=== PATIENT | male | born 1995 | race African-American/Black ===

== ENCOUNTER 2017-06-30 00:27 | Emergency (ER) | payer OTHER ==
[~2017-06-30] VITALS: Ht 182.9 cm; Wt 90.0 kg
[~2017-06-30 00:27] MED LIST: CLON.1; QUET1TAB67 PO
[2017-06-30 00:30] VITALS: BP 141/81; PULSE 75; RESP 16; TEMP 98.9; O2SAT 99
[2017-06-30] MEDS ORDERED: TETANUS/DIPHTHERIA TOXOID ADULT 0.5 ML VIAL IM ONE (00:45)
[2017-06-30] MEDS ORDERED: SODIUM CHLOR 0.9% 1000 ML INJ 1,000 ML IV ONE (00:45)
--- NOTE | 2017-06-30 01:10 | PD ---
HPI . [employer] Act Chief Complaint: Alcohol/Drug Intoxication Time Seen by Provider: 00:38 Travel History International Travel<30 days: No Contact w/Intl Traveler<30days: No Traveled to known affect area: No History of Present Illness HPI This patient is brought in as a Lopez Act. He reportedly had an argument with his girlfriend. He admitted to us that he took a punch pain pills. His girlfriend had a newly filled prescription for ibuprofen 600 mg #30 which was completely empty. He has also reportedly been in alcohol. He also cut his left wrist. The patient has provided no history to us. [facility] Past Medical History Medical History: Unable to Obtain Tetanus Vaccination: Unknown Past Surgical History Surgical History: Unable to Obtain Social History Alcohol Use: Yes (TONIGHT) Tobacco Use: No Substance Use: No Allergies-Medications (Allergen,Severity, Reaction): Coded Allergies: penicillin G (Unverified Allergy, Intermediate, SWELLING ALL OVER, 06/30/17 ) Reported Meds & Prescriptions Reported Meds & Active Scripts Active Review of Systems ROS Limitations: Unresponsive Except as stated in HPI: all other systems reviewed are Neg Physical Exam Narrative GENERAL: Patient is lying on the stretcher with his eyes closed. He actively resists my opening his mouth and eyes. SKIN: warm/dry. He has some superficial lacerations on the left wrist. HEAD: Normocephalic. Atraumatic. EYES: Pupils equal and round. No scleral icterus. No injection or drainage. ENT: No nasal bleeding or discharge. Mucous membranes pink and moist. Good gag reflex. NECK: Trachea midline. Supple. CARDIOVASCULAR: Regular rate and rhythm. Heart sounds normal. RESPIRATORY: No accessory muscle use. Clear to auscultation. Breath sounds equal bilaterally. GASTROINTESTINAL: Abdomen soft. Nontender. Bowel sounds present. Nondistended. MUSCULOSKELETAL: No obvious deformities. NEUROLOGICAL: Asleep. No obvious focal deficits. PSYCHIATRIC: Unable to evaluate. Data Data Last Documented VS Vital Signs Date Time Temp Pulse Resp B/P (MAP) Pulse Ox O2 Delivery O2 Flow Rate FiO2 06/30/17 00:30 98.9 75 16 141/81 (101) 99 Orders Orders Complete Blood Count With Diff (06/30/17 00:38) Basic Metabolic Panel (Bmp) (06/30/17 00:38) Psych Screen (06/30/17 00:38) Drug Screen, Random Urine (06/30/17 00:38) Alcohol (Ethanol) (06/30/17 00:38) Sodium Chlor 0.9% 1000 Ml Inj (Ns 1000 M (06/30/17 00:45) Tetanus/Diphtheria Tox Adult (Tetanus/Di (06/30/17 00:45) Salicylates (Aspirin) (06/30/17 00:42) Tylenol (Acetaminophen) (06/30/17 00:42) Labs Laboratory Tests Test 06/30/17 01:15 06/30/17 01:23 White Blood Count 5.9 TH/MM3 Red Blood Count 4.98 MIL/MM3 Hemoglobin 14.7 GM/DL Hematocrit 42.0 % Mean Corpuscular Volume 84.5 FL Mean Corpuscular Hemoglobin 29.5 PG Mean Corpuscular Hemoglobin Concent 34.9 % Red Cell Distribution Width 13.7 % Platelet Count 209 TH/MM3 Mean Platelet Volume 8.9 FL Neutrophils (%) (Auto) 69.3 % Lymphocytes (%) (Auto) 22.0 % Monocytes (%) (Auto) 8.0 % Eosinophils (%) (Auto) 0.3 % Basophils (%) (Auto) 0.4 % Neutrophils # (Auto) 4.1 TH/MM3 Lymphocytes # (Auto) 1.3 TH/MM3 Monocytes # (Auto) 0.5 TH/MM3 Eosinophils # (Auto) 0.0 TH/MM3 Basophils # (Auto) 0.0 TH/MM3 CBC Comment DIFF FINAL Differential Comment Blood Urea Nitrogen 15 MG/DL Creatinine 1.10 MG/DL Random Glucose 72 MG/DL Calcium Level 9.1 MG/DL Sodium Level 140 MEQ/L Potassium Level 3.7 MEQ/L Chloride Level 107 MEQ/L Carbon Dioxide Level 25.0 MEQ/L Anion Gap 8 MEQ/L Estimat Glomerular Filtration Rate 101 ML/MIN Salicylates Level LESS THAN 1.7 MG/DL Acetaminophen Level LESS THAN 2.0 MCG/ML Ethyl Alcohol Level LESS THAN 3 MG/DL Urine Opiates Screen NEG Urine Barbiturates Screen NEG Urine Amphetamines Screen NEG Urine Benzodiazepines Screen NEG Urine Cocaine Screen NEG Urine Cannabinoids Screen POS MDM Medical Decision Making Medical Screen Exam Complete: Yes Emergency Medical Condition: Yes Differential Diagnosis Differential diagnosis of altered mental status includes but is not limited to infection, electrolyte abnormality, neurological event, intoxication Narrative Course This patient presents as a Lopez Act after reportedly ingesting alcohol, pain pills and cutting his wrist. Medical clearance exam was in process. He will need to wake up before he can call psych screening. The patient awakened very shortly after getting here. I believe that he was feigning unconsciousness. CBC & BMP Diagram 06/30/17 01:15 Calcium Level 9.1 Tox screen is positive for marijuana. This patient is medically clear for psychiatric evaluation. Diagnosis Primary Impression: Medical clearance for psychiatric admission Condition: Stable Maryjo Salvador MD Jun 30, 2017 01:10
[2017-06-30 01:40] LABS: AUTOMATED NEUTROPHIL # 4.1 TH/MM3 (1.8-7.7); BASOPHIL % 0.4 % (0.0-2.0); EOSINOPHIL % 0.3 % (0.0-4.0); HEMO FLAGS DIFF FINAL; LYMPHOCYTE # 1.3 TH/MM3 (1.0-4.8); MEAN CELL VOLUME 84.5 FL (80.0-100.0); MEAN CORPUSCULAR HEMOGLOBIN 29.5 PG (27.0-34.0); MEAN CORPUSCULAR HGB CONC 34.9 % (32.0-36.0); NEUT % 69.3 % (16.0-70.0); PLATELET COUNT 209 TH/MM3 (150-450); RED BLOOD COUNT 4.98 MIL/MM3 (4.50-5.90); RED CELL DISTRIBUTION WIDTH 13.7 % (11.6-17.2); WHITE BLOOD COUNT 5.9 TH/MM3 (4.0-11.0)
[2017-06-30 01:56] LABS: ANION GAP 8 MEQ/L (5-15); BLOOD UREA NITROGEN 15 MG/DL (7-18); CHLORIDE 107 MEQ/L (98-107); GLOMERULAR FILTRATION RATE 101 ML/MIN (>89); POTASSIUM 3.7 MEQ/L (3.5-5.1); SODIUM (NA) 140 MEQ/L (136-145)
[2017-06-30 02:00] LABS: ALCOHOL LESS THAN 3 MG/DL (0-5)
[2017-06-30 03:18] VITALS: BP 129/60; PULSE 71; RESP 18; TEMP 97.9; O2SAT 99
[2017-06-30 06:26] VITALS: BP 130/59; PULSE 69; RESP 16; TEMP 98.4; O2SAT 98
[2017-06-30 14:00] VITALS: BP 149/82; PULSE 63; RESP 20
--- NOTE | 2017-06-30 14:06 | PD ---
Physical Exam Date Seen by Provider: Jun 30, 2017 Time Seen by Provider: 14:02 Narrative 22-year-old male previously Lopez acted and medically cleared after reported attempted overdose, was evaluated by psychiatric staff, and found to be psychiatrically stable for outpatient discharge. The patient remains medically stable for discharge at this time. Follow-up will be based on psychiatric plan. Data Data Last Documented VS Vital Signs Date Time Temp Pulse Resp B/P (MAP) Pulse Ox O2 Delivery O2 Flow Rate FiO2 06/30/17 06:26 98.4 69 16 130/59 (82) 98 Room Air Orders Orders Complete Blood Count With Diff (06/30/17 00:38) Basic Metabolic Panel (Bmp) (06/30/17 00:38) Psych Screen (06/30/17 00:38) Drug Screen, Random Urine (06/30/17 00:38) Alcohol (Ethanol) (06/30/17 00:38) Sodium Chlor 0.9% 1000 Ml Inj (Ns 1000 M (06/30/17 00:45) Tetanus/Diphtheria Tox Adult (Tetanus/Di (06/30/17 00:45) Salicylates (Aspirin) (06/30/17 00:42) Tylenol (Acetaminophen) (06/30/17 00:42) Diet Regular Basic (06/30/17 Breakfast) Diet Regular Basic (06/30/17 Lunch) Labs Laboratory Tests Test 06/30/17 01:15 06/30/17 01:23 White Blood Count 5.9 TH/MM3 Red Blood Count 4.98 MIL/MM3 Hemoglobin 14.7 GM/DL Hematocrit 42.0 % Mean Corpuscular Volume 84.5 FL Mean Corpuscular Hemoglobin 29.5 PG Mean Corpuscular Hemoglobin Concent 34.9 % Red Cell Distribution Width 13.7 % Platelet Count 209 TH/MM3 Mean Platelet Volume 8.9 FL Neutrophils (%) (Auto) 69.3 % Lymphocytes (%) (Auto) 22.0 % Monocytes (%) (Auto) 8.0 % Eosinophils (%) (Auto) 0.3 % Basophils (%) (Auto) 0.4 % Neutrophils # (Auto) 4.1 TH/MM3 Lymphocytes # (Auto) 1.3 TH/MM3 Monocytes # (Auto) 0.5 TH/MM3 Eosinophils # (Auto) 0.0 TH/MM3 Basophils # (Auto) 0.0 TH/MM3 CBC Comment DIFF FINAL Differential Comment Blood Urea Nitrogen 15 MG/DL Creatinine 1.10 MG/DL Random Glucose 72 MG/DL Calcium Level 9.1 MG/DL Sodium Level 140 MEQ/L Potassium Level 3.7 MEQ/L Chloride Level 107 MEQ/L Carbon Dioxide Level 25.0 MEQ/L Anion Gap 8 MEQ/L Estimat Glomerular Filtration Rate 101 ML/MIN Salicylates Level LESS THAN 1.7 MG/DL Acetaminophen Level LESS THAN 2.0 MCG/ML Ethyl Alcohol Level LESS THAN 3 MG/DL Urine Opiates Screen NEG Urine Barbiturates Screen NEG Urine Amphetamines Screen NEG Urine Benzodiazepines Screen NEG Urine Cocaine Screen NEG Urine Cannabinoids Screen POS MDM Medical Record Reviewed: Yes Supervised Visit with PATRICIO: Yes Narrative Course 22-year-old male previously Lopez acted and medically cleared after reported attempted overdose, was evaluated by psychiatric staff, and found to be psychiatrically stable for outpatient discharge. The patient remains medically stable for discharge at this time. Follow-up will be based on psychiatric plan. Diagnosis Primary Impression: Medical clearance for psychiatric admission Additional Instruction: Follow-up per psychiatric plan. Disposition: DISCHARGE HOME Condition: Stable Pk Lim Jun 30, 2017 14:06
--- NOTE | 2017-06-30 14:09 | PD ---
History of Present Illness Chief Complaint: Alcohol/Drug Intoxication Time Seen by Provider: 13:45 Travel History International Travel<30 Days: No Contact w/Intl Traveler<30days: No Known affected area: No Legal Status Legal Status: Lopez Act Lopez Act Signed By: Ken March Lopez Act Comment: 2016 @ 3999 History of Present Illness: History of Present Illness HPI This patient is a 22-year-old male with reported history of anxiety disorder who is brought in as a Lopez Act initiated by law enforcement. The report alleges that the patient is suicidal and suffers from depression depression and that he took 30 ibuprofen 600 mg as well as cutting himself with superficial lacerations to his left arm. The incident involved in an argument with his girlfriend after he found some pictures that she had sent of herself to another male. The patient was monitored in secure environment and he presented no behavioral concerns and no suicidality. Electronic medical record is reviewed. No previous contact with [place] psychiat[facility]. Review of toxicology is positive for cannabinoids. Patient is seen and examined. He is alert, oriented, engaging, cooperative. His speech is clear and logical. There is no evidence of any psychosis including no hallucinations, no delusions and no paranoia. He admits that he made an impulsive act while he was angry and states" I let my emotions control my actions". He also reports that he did not want intent to kill himself and is currently denying any suicidal or homicidal ideation intent or plan. He also states" at the end of the day I have 2 kids to raise and I have to be there for them". He has been in communication with his sister who is here to pick him up. Patient also has a brother who is in the area and is supportive. [facility] Past Medical History Medical History: Unable to Obtain Tetanus Vaccination: Unknown Past Surgical History Surgical History: Unable to Obtain Psychiatric History Psychiatric History Hx Psychiatric Treatment: Reports that he was treated for anxiety while incarcerated. That he took Zoloft for a year and a half. Denies any previous suicidal attempts. Patient with history of cutting while he was in senior care. History of Inpatient Treatment: No Guns or firearms in home: No Social History Single, never male. Born in [place] and moved to [place] at the age of 7. Has been in [place] for approximately 7-8 years. He completed 12th grade. Currently unemployed and receives disability for reported anger issues. He has a 4-year-old son and a 2-year-old daughter. Has a brother and a sister in the area. Hx Alcohol Use: Yes (TONIGHT) Hx Tobacco Use: No Hx Substance Use: No Hx of Substance Use Treatment: No Allergies-Medications (Allergen,Severity, Reaction): Coded Allergies: penicillin G (Unverified Allergy, Intermediate, SWELLING ALL OVER, 06/30/17 ) Reported Meds & Prescriptions Reported Meds & Active Scripts Active Review of Systems Except as stated in HPI: all other systems reviewed are Neg Mental Status Examination Appearance: Appropriate, Other (dressed in [facility] with fair hygiene) Consciousness: Alert Orientation: x4 Motor Activity: Normal gait Speech: Unremarkable Language: Adequate Fund of Knowledge: Adequate Attention and Concentration: Adequate Memory: Unremarkable Mood: Appropriate Affect: Appropriate Thought Process & Associations: Intact, Logical, Goal directed Thought Content: Appropriate Hallucination Type: None Delusion Type: None Suicidal Ideation: No Suicidal Plan: No Suicidal Intention: No Homicidal Ideation: No Homicidal Plan: No Homicidal Intention: No Insight: Fair Judgment: Impulsive MDM Medical Decision Making Medical Record Reviewed: Yes Assessment/Plan 22-year-old male with a reported history of anxiety who in context of an argument with his girlfriend in which he confronted her about some pictures that he found of her proceeded to take some ibuprofen as well as self inflicting lacerations to his left arm. Patient admits that he did so in context of an argument and denies that he was truly trying to harm himself. He continues to deny any suicidal or homicidal ideation. He is future oriented and has good family support. His sister has been at the hospital waiting for him to be discharge. He is agreeing to follow-up with outpatient care including counseling. He will be provided a referral packet for area psychiatrist. The patient is cognitively intact and contracts for safety. No evidence of any unstable mental illness as defined under the Lopez act. The patient is provided psychoeducation and support. The Lopez act is lifted. Psychiatrically clear for discharge. Orders Orders Complete Blood Count With Diff (06/30/17 00:38) Basic Metabolic Panel (Bmp) (06/30/17 00:38) Psych Screen (06/30/17 00:38) Drug Screen, Random Urine (06/30/17 00:38) Alcohol (Ethanol) (06/30/17 00:38) Sodium Chlor 0.9% 1000 Ml Inj (Ns 1000 M (06/30/17 00:45) Tetanus/Diphtheria Tox Adult (Tetanus/Di (06/30/17 00:45) Salicylates (Aspirin) (06/30/17 00:42) Tylenol (Acetaminophen) (06/30/17 00:42) Diet Regular Basic (06/30/17 Breakfast) Diet Regular Basic (06/30/17 Lunch) Results Vital Signs Date Time Temp Pulse Resp B/P (MAP) Pulse Ox O2 Delivery O2 Flow Rate FiO2 06/30/17 06:26 98.4 69 16 130/59 (82) 98 Room Air 06/30/17 03:18 97.9 71 18 129/60 (83) 99 Room Air 06/30/17 00:30 98.9 75 16 141/81 (101) 99 Laboratory Tests Test 06/30/17 01:15 06/30/17 01:23 White Blood Count 5.9 Red Blood Count 4.98 Hemoglobin 14.7 Hematocrit 42.0 Mean Corpuscular Volume 84.5 Mean Corpuscular Hemoglobin 29.5 Mean Corpuscular Hemoglobin Concent 34.9 Red Cell Distribution Width 13.7 Platelet Count 209 Mean Platelet Volume 8.9 Neutrophils (%) (Auto) 69.3 Lymphocytes (%) (Auto) 22.0 Monocytes (%) (Auto) 8.0 Eosinophils (%) (Auto) 0.3 Basophils (%) (Auto) 0.4 Neutrophils # (Auto) 4.1 Lymphocytes # (Auto) 1.3 Monocytes # (Auto) 0.5 Eosinophils # (Auto) 0.0 Basophils # (Auto) 0.0 CBC Comment DIFF FINAL Differential Comment Blood Urea Nitrogen 15 Creatinine 1.10 Random Glucose 72 Calcium Level 9.1 Sodium Level 140 Potassium Level 3.7 Chloride Level 107 Carbon Dioxide Level 25.0 Anion Gap 8 Estimat Glomerular Filtration Rate 101 Salicylates Level LESS THAN 1.7 Acetaminophen Level LESS THAN 2.0 Ethyl Alcohol Level LESS THAN 3 Urine Opiates Screen NEG Urine Barbiturates Screen NEG Urine Amphetamines Screen NEG Urine Benzodiazepines Screen NEG Urine Cocaine Screen NEG Urine Cannabinoids Screen POS Diagnosis Primary Impression: Adjustment disorder Psychiatrically Cleared: Yes Additional Instructions: Follow-up per psychiatric plan. Med/ Other Pt Specific Info: No Meds Exist/No RX given Disposition: 01 DISCHARGE HOME Condition: Stable Problem Qualifiers Primary Impression: Adjustment disorder Qualified Codes: F43.25 - Adjustment disorder with mixed disturbance of emotions and conduct Nelly Ferguson [facility] Jun 30, 2017 14:09
== END 2017-06-30 15:08 | disposition home or self-care (01) ==
LOC: NEPC 00:27 → NEPJ 15:08
DX: F43.25 Adjustment disorder with mixed disturbance of emotions and conduct (principal); S61.512A Laceration without foreign body of left wrist, initial encounter; X78.9XXA Intentional self-harm by unspecified sharp object, initial encounter; Z23 Encounter for immunization
CPT/HCPCS: 80048; 80307; 85025; 90471; 90714; 99285; J7030

== ENCOUNTER 2017-08-01 21:50 | Emergency (ER) | payer OTHER ==
[~2017-08-01] VITALS: Ht 172.7 cm; Wt 95.0 kg
[2017-08-01 21:51] VITALS: BP 142/75; PULSE 76; RESP 16; TEMP 98.6; O2SAT 97
[2017-08-01 23:54] VITALS: BP 133/83; PULSE 73; RESP 16; O2SAT 99
--- NOTE | 2017-08-02 02:32 | PD ---
HPI Chief Complaint: Injury Time Seen by Provider: 02:22 Travel History International Travel<30 days: No Contact w/Intl Traveler<30days: No Traveled to known affect area: No History of Present Illness HPI 22-year-old male complains of right shoulder pain and right knee pain. Patient fell this evening. Patient denies loss of consciousness. Patient denies any headache or neck pain. Patient denies any chest pain or shortness of breath. Patient denies abdominal pain. Patient denies any focal weakness or numbness of extremity. Patient said the pain is sharp pain localized posterior aspect of the right shoulder and superior aspect the right knee around the patellar area. Patient denies any pain radiation. On a scale of 1-10 the pain is a 5. PFSH Social History Alcohol Use: Yes (TONIGHT) Tobacco Use: No Substance Use: No Allergies-Medications (Allergen,Severity, Reaction): Coded Allergies: penicillin G (Unverified Allergy, Intermediate, SWELLING ALL OVER, 08/01/17 ) Reported Meds & Prescriptions Reported Meds & Active Scripts Active No Active Prescriptions or Reported Medications Review of Systems General / Constitutional: No: Fever Eyes: No: Visual changes HENT: No: Headaches Cardiovascular: No: Chest Pain or Discomfort Respiratory: No: Shortness of Breath Gastrointestinal: No: Abdominal Pain Genitourinary: No: Dysuria Musculoskeletal: Positive: Pain Skin: No Rash Neurologic: No: Weakness Psychiatric: No: Depression Endocrine: No: Polydipsia Hematologic/Lymphatic: No: Easy Bruising Physical Exam Narrative GENERAL: Well-nourished, well-developed patient. SKIN: Focused skin assessment warm/dry. HEAD: Normocephalic. EYES: No scleral icterus. No injection or drainage. NECK: Supple, trachea midline. No JVD or lymphadenopathy. CARDIOVASCULAR: Regular rate and rhythm without murmurs, gallops, or rubs. RESPIRATORY: Breath sounds equal bilaterally. No accessory muscle use. GASTROINTESTINAL: Abdomen soft, non-tender, nondistended. MUSCULOSKELETAL: Patient has mild to moderate tenderness on palpation posterior aspect the right shoulder joint and wrist scalp area. Full range of motion the right shoulder. Mild tenderness on palpation suprapatellar area of the right knee joint. Full range of motion knee. Knee joints stable. BACK: Nontender without obvious deformity. No CVA tenderness. Data Data Last Documented VS Vital Signs Date Time Temp Pulse Resp B/P (MAP) Pulse Ox O2 Delivery O2 Flow Rate FiO2 08/01/17 23:54 73 16 133/83 (100) 99 Room Air 08/01/17 21:51 98.6 Orders Orders Knee, Ltd (1 Or 2vws) (08/02/17 02:25) Shoulder, Limited(2vws) (08/02/17 02:25) MDM Medical Decision Making Medical Screen Exam Complete: Yes Emergency Medical Condition: Yes Interpretation(s) X-ray shows no acute bony injury. Differential Diagnosis Differential diagnosis including contusion, fracture, dislocation. Narrative Course 22-year-old male with a shoulder and right knee injury. Diagnosis Primary Impression: Contusion of right shoulder Qualified Codes: S40.011A - Contusion of right shoulder, initial encounter Additional Impression: Contusion of right knee Qualified Codes: S80.01XA - Contusion of right knee, initial encounter Patient Instructions: General Instructions Additional Instructions: Advil Tylenol for pain. Ice pack as needed. Follow-up with orthopedist if persistent problem. Med/Other Pt SpecificInfo: No Meds Exist/No RX given Scripts No Active Prescriptions or Reported Meds Disposition: 01 DISCHARGE HOME Condition: Stable Asher Velasquez MD Aug 02, 2017 02:32
--- NOTE | 2017-08-02 03:45 | RADRPT ---
EXAM DATE/TIME: 08/02/2017 02:36 [facility] COMPARISON: No previous studies available for comparison. INDICATIONS : Right shoulder pain after fall today. MEDICAL HISTORY : None. SURGICAL HISTORY : None. ENCOUNTER: Initial ACUITY: 1 day PAIN SCORE: 7/10 LOCATION: Right shoulder. FINDINGS: Two view examination of the right shoulder demonstrates no evidence of fracture or dislocation. The glenohumeral and acromioclavicular joints are maintained. Bony mineralization is normal. CONCLUSION: 1. There is no evidence of acute fracture. Rob Florence MD on August 02, 2017 at 3:43 Board Certified Radiologist. This report was verified electronically.
--- NOTE | 2017-08-02 03:45 | RADRPT ---
EXAM DATE/TIME: 08/02/2017 02:40 [facility] COMPARISON: No previous studies available for comparison. INDICATIONS : Pain in right knee after fall today. MEDICAL HISTORY : None. SURGICAL HISTORY : None. ENCOUNTER: Initial ACUITY: 1 day PAIN SCORE: 8/10 LOCATION: Right knee. FINDINGS: Two view examination of the right knee demonstrates no evidence of fracture or dislocation. Bony min eralization is normal. The suprapatellar soft tissues have a normal configuration. CONCLUSION: 1. There is no evidence of acute fracture. Rob Florence MD on August 02, 2017 at 3:43 Board Certified Radiologist. This report was verified electronically.
== END 2017-08-02 05:24 | disposition home or self-care (01) ==
LOC: NEPE 21:50
DX: S40.011A Contusion of right shoulder, initial encounter (principal); S80.01XA Contusion of right knee, initial encounter; W19.XXXA Unspecified fall, initial encounter
CPT/HCPCS: 73030; 73560; 99284

== ENCOUNTER 2017-08-18 17:30 | Emergency (ER) | payer OTHER ==
[~2017-08-18] VITALS: Ht 180.3 cm; Wt 95.5 kg
[2017-08-18 17:32] VITALS: BP 140/72; PULSE 86; RESP 12; TEMP 98.6; O2SAT 98
[2017-08-18] MEDS ORDERED: SODIUM CHLOR 0.9% 1000 ML INJ 1,000 ML IV SCH (19:21)
[2017-08-18] MEDS ORDERED: SODIUM CHLORIDE 0.9% FLUSH 10 ML FLUSH IV FLUSH PRN (19:30)
[2017-08-18] MEDS ORDERED: ONDANSETRON HCL 4 MG/2 ML VIAL IVP ONE (19:30)
--- NOTE | 2017-08-18 19:41 | PD ---
HPI Chief Complaint: GI Complaint Time Seen by Provider: 19:16 Travel History International Travel<30 days: No Contact w/Intl Traveler<30days: No Traveled to known affect area: No History of Present Illness HPI 22-year-old male here for evaluation of nausea, vomiting, and epigastric abdominal pain. Patient reports that his symptoms have been going on for the last week. States that the pain is sharp, moderate, intermittent, worse with vomiting. He denies fevers or chills. No history of abdominal surgeries. Normal bowel movements. He denies alcohol or illicit drug use. He is here with a large suitcase and states he is here visiting from [place]. FORMERLY [facility], [facility] Past Medical History Medical History: Denies Significant Hx Diminished Hearing: No Influenza Vaccination: No Past Surgical History Surgical History: No Previous Surgery Social History Alcohol Use: Yes (OCCASIONALLY) Tobacco Use: Yes (7 CIGS/DAY) Substance Use: No Allergies-Medications (Allergen,Severity, Reaction): Coded Allergies: penicillin G (Unverified Allergy, Intermediate, SWELLING ALL OVER, 08/18/17 ) Reported Meds & Prescriptions Reported Meds & Active Scripts Active No Active Prescriptions or Reported Medications Review of Systems Except as stated in HPI: all other systems reviewed are Neg Physical Exam Narrative GENERAL: Well-developed, well-nourished, awake, alert, comfortable, no apparent distress. SKIN: Focused skin assessment warm/dry. Several linear/horizontal on the scars to left anterior forearm from self inflicted wounds. HEAD: Atraumatic. Normocephalic. EYES: Pupils equal and round. No scleral icterus. No injection or drainage. ENT: Mucous membranes pink and moist. NECK: Trachea midline. No JVD. CARDIOVASCULAR: Regular rate and rhythm. RESPIRATORY: No accessory muscle use. Clear to auscultation. Breath sounds equal bilaterally. GASTROINTESTINAL: Abdomen soft, non-tender, nondistended. No hernias. Normal bowel sounds. No HSM. MUSCULOSKELETAL: No obvious deformities. No clubbing. No cyanosis. No edema. NEUROLOGICAL: Awake and alert. No obvious cranial nerve deficits. Motor grossly within normal limits. Normal speech. PSYCHIATRIC: Appropriate mood and affect; insight and judgment normal. Data Data Last Documented VS Vital Signs Date Time Temp Pulse Resp B/P (MAP) Pulse Ox O2 Delivery O2 Flow Rate FiO2 08/18/17 17:32 98.6 86 12 140/72 (94) 98 Orders Orders Complete Blood Count With Diff (08/18/17 19:21) Comprehensive Metabolic Panel (08/18/17 19:21) Lipase (08/18/17 19:21) Prothrombin Time / Inr (Pt) (08/18/17 19:21) Act Partial Throm Time (Ptt) (08/18/17 19:21) Iv Access Insert/Monitor (08/18/17 19:21) Ecg Monitoring (08/18/17 19:21) Oximetry (08/18/17 19:21) Ondansetron Inj (Zofran Inj) (08/18/17 19:30) Sodium Chlor 0.9% 1000 Ml Inj (Ns 1000 M (08/18/17 19:21) Sodium Chloride 0.9% Flush (Ns Flush) (08/18/17 19:30) Influenzae A/B Antigen (08/18/17 19:22) Labs Laboratory Tests Test 08/18/17 19:30 White Blood Count 5.1 TH/MM3 Red Blood Count 4.97 MIL/MM3 Hemoglobin 14.4 GM/DL Hematocrit 41.8 % Mean Corpuscular Volume 84.1 FL Mean Corpuscular Hemoglobin 28.9 PG Mean Corpuscular Hemoglobin Concent 34.3 % Red Cell Distribution Width 13.5 % Platelet Count 177 TH/MM3 Mean Platelet Volume 9.1 FL Neutrophils (%) (Auto) 53.1 % Lymphocytes (%) (Auto) 34.2 % Monocytes (%) (Auto) 9.7 % Eosinophils (%) (Auto) 2.5 % Basophils (%) (Auto) 0.5 % Neutrophils # (Auto) 2.7 TH/MM3 Lymphocytes # (Auto) 1.7 TH/MM3 Monocytes # (Auto) 0.5 TH/MM3 Eosinophils # (Auto) 0.1 TH/MM3 Basophils # (Auto) 0.0 TH/MM3 CBC Comment DIFF FINAL Differential Comment Prothrombin Time 10.3 SEC Prothromb Time International Ratio 1.0 RATIO Activated Partial Thromboplast Time 27.3 SEC Blood Urea Nitrogen 14 MG/DL Creatinine 1.00 MG/DL Random Glucose 81 MG/DL Total Protein 7.3 GM/DL Albumin 4.1 GM/DL Calcium Level 9.1 MG/DL Alkaline Phosphatase 54 U/L Aspartate Amino Transf (AST/SGOT) 17 U/L Alanine Aminotransferase (ALT/SGPT) 30 U/L Total Bilirubin 0.6 MG/DL Sodium Level 141 MEQ/L Potassium Level 4.0 MEQ/L Chloride Level 107 MEQ/L Carbon Dioxide Level 25.7 MEQ/L Anion Gap 8 MEQ/L Estimat Glomerular Filtration Rate 113 ML/MIN Lipase 231 U/L [facility] Medical Decision Making Medical Screen Exam Complete: Yes Emergency Medical Condition: Yes Differential Diagnosis Nausea and vomiting, dehydration, gastritis, pancreatitis, hepatobiliary disease , bowel obstruction unlikely Narrative Course Vital signs reviewed. CBC is unremarkable. CMP is unremarkable. Lipase is 231. Influenza is negative. Patient was given a liter of normal saline IV and IV Zofran. He has not had any further episodes of vomiting in the emergency Department and is tolerating clear liquids orally. His abdominal exam is benign. I do not believe that there is an acute intra-abdominal/surgical process. At this point I believe he is stable for discharge home with outpatient follow-up with a primary care physician this week. He was advised on when to return to the emergency department. He verbalizes understanding and agreement with plan. Diagnosis Primary Impression: Nausea and vomiting Qualified Codes: R11.2 - Nausea with vomiting, unspecified Referrals: [facility] 3 days Primary Care Physician 3 days Additional Instructions: Follow-up with a primary care physician this week. Return to the emergency department for worsening symptoms or any other concerns. Scripts Ondansetron Odt (Zofran Odt) 4 Mg Tab 4 MG SL Q8HR Y for Nausea/Vomiting, #15 TAB 0 Refills Prov: Milton Maria MD 08/18/17 Disposition: 01 DISCHARGE HOME Condition: Stable Milton Maria MD Aug 18, 2017 19:41
[2017-08-18 20:12] LABS: AUTOMATED NEUTROPHIL # 2.7 TH/MM3 (1.8-7.7); BASOPHIL % 0.5 % (0.0-2.0); EOSINOPHIL # 0.1 TH/MM3 (0-0.4); EOSINOPHIL % 2.5 % (0.0-4.0); HEMATOCRIT 41.8 % (39.0-51.0); HEMOGLOBIN 14.4 GM/DL (13.0-17.0); LYMPH % 34.2 % (9.0-44.0); LYMPHOCYTE # 1.7 TH/MM3 (1.0-4.8); MEAN CELL VOLUME 84.1 FL (80.0-100.0); MEAN CORPUSCULAR HEMOGLOBIN 28.9 PG (27.0-34.0); MEAN CORPUSCULAR HGB CONC 34.3 % (32.0-36.0); MEAN PLATELET VOLUME 9.1 FL (7.0-11.0); MONO % 9.7 % (0.0-8.0); MONOCYTE # 0.5 TH/MM3 (0-0.9); NEUT % 53.1 % (16.0-70.0); PLATELET COUNT 177 TH/MM3 (150-450); RED BLOOD COUNT 4.97 MIL/MM3 (4.50-5.90); RED CELL DISTRIBUTION WIDTH 13.5 % (11.6-17.2); WHITE BLOOD COUNT 5.1 TH/MM3 (4.0-11.0)
[2017-08-18 20:28] LABS: PROTHROMBIN TIME - PATIENT 10.3 SEC (9.8-11.6)
[2017-08-18 20:39] LABS: ALT (GPT) 30 U/L (12-78)
[2017-08-18 20:41] LABS: ALKALINE PHOSPHATASE 54 U/L (45-117); TOTAL BILIRUBIN ADULT 0.6 MG/DL (0.2-1.0); TOTAL PROTEIN 7.3 GM/DL (6.4-8.2)
[2017-08-18 21:02] LABS: ALBUMIN 4.1 GM/DL (3.4-5.0); AST (GOT) 17 U/L (15-37); BICARBONATE 25.7 MEQ/L (21.0-32.0); BLOOD UREA NITROGEN 14 MG/DL (7-18); CALCIUM 9.1 MG/DL (8.5-10.1); CHLORIDE 107 MEQ/L (98-107); GLOMERULAR FILTRATION RATE 113 ML/MIN (>89); GLUCOSE,RANDOM 81 MG/DL (74-106); LIPASE 231 U/L (73-393); SODIUM (NA) 141 MEQ/L (136-145)
[2017-08-18] MEDS ORDERED: ZOFR4TAB3 SL (21:23)
[2017-08-18 21:40] VITALS: BP 123/64
== END 2017-08-18 21:42 | disposition home or self-care (01) ==
LOC: NEPD 17:30
DX: R11.2 Nausea with vomiting, unspecified (principal); R10.13 Epigastric pain; F17.210 Nicotine dependence, cigarettes, uncomplicated
CPT/HCPCS: 80053; 83690; 85025; 85610; 85730; 87804; 96361; 96374; 99284; J2405; J7030

== ENCOUNTER 2017-12-22 01:27 | Emergency (ER) | payer MEDICARE, OTHER ==
[~2017-12-22] VITALS: Ht 180.3 cm; Wt 88.0 kg
[~2017-12-22 01:27] MED LIST changes: -CLON.1; -QUET1TAB67 PO; +ZOFR4TAB3 SL
[2017-12-22 01:48] VITALS: BP 143/91; PULSE 100; RESP 20; TEMP 99.3; O2SAT 100
--- NOTE | 2017-12-22 02:03 | PD ---
HPI Chief Complaint: Psychiatric Symptoms Time Seen by Provider: 01:54 Travel History International Travel<30 days: No Contact w/Intl Traveler<30days: No Traveled to known affect area: No History of Present Illness HPI 22-year-old black male presents emergency department requesting evaluation and treatment of his anxiety. He states that he has a history of bipolar disorder and ADHD. He had been incarcerated from 2014 through 2015. During that time he had been given Zoloft. He states that he has been off medication since then. He feels that he needs to have some medication to stabilize him. He states that he feels very anxious. He denies any suicidal or homicidal ideation. Patient seems somewhat disorganized. No aggravating or alleviating factors. Denies drugs. Admits to alcohol on occasion. He does smoke cigarettes. PFSH Past Medical History Narrative Medical Anxiety, bipolar, ADHD Depression: Yes Diminished Hearing: No Immunizations Current: Yes Tetanus Vaccination: < 5 Years Influenza Vaccination: No Past Surgical History Surgical History: No Previous Surgery Social History Alcohol Use: Yes (OCCASIONALLY) Tobacco Use: Yes (7 CIGS/DAY) Substance Use: No Allergies-Medications (Allergen,Severity, Reaction): Coded Allergies: penicillin G (Unverified Allergy, Intermediate, SWELLING ALL OVER, 12/22/17) Reported Meds & Prescriptions Reported Meds & Active Scripts Active No Active Prescriptions or Reported Medications Review of Systems General / Constitutional: No: Fever Eyes: No: Visual changes HENT: No: Headaches Cardiovascular: No: Chest Pain or Discomfort Respiratory: No: Shortness of Breath Gastrointestinal: No: Abdominal Pain Genitourinary: No: Dysuria Musculoskeletal: No: Pain Skin: No Rash Neurologic: No: Weakness Psychiatric: Positive: Anxiety, No: Depression, Suicidal Ideations, Disorder of Thought, Mood Disorder, Substance Abuse, Homicidal Ideation Endocrine: No: Polydipsia Hematologic/Lymphatic: No: Easy Bruising Physical Exam Narrative GENERAL: Well-nourished, well-developed patient. SKIN: Warm and dry. HEAD: Normocephalic and atraumatic. EYES: No scleral icterus. No injection or drainage. ENT: No nasal drainage noted. Mucous membranes pink. Airway patent. NECK: Supple, trachea midline. Moves head freely without obvious discomfort. CARDIOVASCULAR: Regular rate and rhythm without murmurs, gallops, or rubs. RESPIRATORY: Breath sounds equal bilaterally. No accessory muscle use. GASTROINTESTINAL: Abdomen soft, non-tender, nondistended. EXTREMITIES: No cyanosis or edema. BACK: Nontender without obvious deformity. No CVA tenderness. NEURO: Patient is alert and oriented. no sensorimotor deficits. Nonfocal. Normal speech. PSYCH: No delusions. No auditory or visual hallucinations. Data Data Last Documented VS Vital Signs Date Time Temp Pulse Resp B/P (MAP) Pulse Ox O2 Delivery O2 Flow Rate FiO2 12/22/17 01:48 99.3 100 20 143/91 (108) 100 Orders Orders Psych Screen (12/22/17 01:59) Drug Screen, Random Urine (12/22/17 01:59) Hydroxyzine Pamoate (Vistaril) (12/22/17 02:00) MDM Medical Decision Making Medical Screen Exam Complete: Yes Emergency Medical Condition: Yes Medical Record Reviewed: Yes Differential Diagnosis MDM: High Differential diagnoses: Schizophrenia, schizoaffective disorder, bipolar, anxiety, depression, adjustment reaction, mood disorder NOS, ODD, depressive disorder NOS, dementia, dementia with agitation, psychosis NOS, substance induced mood disorder, DMDD, Asperger syndrome, infection,electrolyte abnormality, malingering. Narrative Course Mental health screening discussed with the patient. Psychiatric screen ordered. Patient was given Vistaril 50 mg p.o. Psych screen has been ordered. The patient seems somewhat disorganized. Scripts No Active Prescriptions or Reported Meds Condition: Kane Santoyo Dec 22, 2017 02:03
--- NOTE | 2017-12-22 16:31 | PD ---
Physical Exam Time Seen by Provider: 16:28 Narrative 22-year-old male who presented voluntarily for psychiatric evaluation secondary to his anxiety. He does not want to be here anymore and wants to leave. I spoke with the patient and he denies suicidal or homicidal ideations. He has no history of suicidal attempts. He denies drug or alcohol use. He was provided information for follow-up and says that he will follow-up outpatient for his anxiety. He has no other medical complaints. I do not feel the patient is a threat to himself or others and the patient is safe for discharge. Data Data Last Documented VS Vital Signs Date Time Temp Pulse Resp B/P (MAP) Pulse Ox O2 Delivery O2 Flow Rate FiO2 12/22/17 01:48 99.3 100 20 143/91 (108) 100 Orders Orders Psych Screen (12/22/17 01:59) Drug Screen, Random Urine (12/22/17 01:59) Hydroxyzine Pamoate (Vistaril) (12/22/17 02:00) Diet Regular Basic (12/22/17 Breakfast) Diet Regular Basic (12/22/17 Lunch) Diet Regular Basic (12/22/17 Dinner) Labs Laboratory Tests Test 12/22/17 02:27 Urine Opiates Screen NEG Urine Barbiturates Screen NEG Urine Amphetamines Screen NEG Urine Benzodiazepines Screen NEG Urine Cocaine Screen POS Urine Cannabinoids Screen POS MDM Supervised Visit with PATRICIO: No Narrative Course 22-year-old male who presented voluntarily for psychiatric evaluation secondary to his anxiety. He does not want to be here anymore and wants to leave. I spoke with the patient and he denies suicidal or homicidal ideations. He has no history of suicidal attempts. He denies drug or alcohol use. He was provided information for follow-up and says that he will follow-up outpatient for his anxiety. He has no other medical complaints. I do not feel the patient is a threat to himself or others and the patient is safe for discharge. Patient contracts safety. Denies suicidal or homicidal ideations. Patient will be provided community resource packet to [facility] for follow-up. Patient cleared for discharge. Diagnosis Primary Impression: Anxiety Referrals: [facility] (Out patient) [facility] Primary Care Physician Psychiatrist Christofer [facility] Patient Instructions: Anxiety (ED), General Instructions Additional Instruction: Contract safety to your self and others Follow-up with psychiatry Follow-up with primary care provider Follow-up with Severiano Urias/[facility] Return to the emergency department immediately with worsening of symptoms Med/Other Pt SpecificInfo: No Change to Meds, No Meds Exist/No RX given Scripts No Active Prescriptions or Reported Meds Disposition: 01 DISCHARGE HOME Condition: Stable Zohra Vanegas Dec 22, 2017 16:31
== END 2017-12-22 16:35 | disposition home or self-care (01) ==
LOC: NEPD 01:27 → NEPJ 16:35
DX: F41.9 Anxiety disorder, unspecified (principal); F17.210 Nicotine dependence, cigarettes, uncomplicated
CPT/HCPCS: 80307; 99283